=== PATIENT | female | born 1990 | race Two or more races ===

== ENCOUNTER 2022-07-24 15:52 | Emergency (ER) | payer OTHER ==
[~2022-07-24] VITALS: Ht 157.5 cm; Wt 72.7 kg
[2022-07-24 18:21] VITALS: BP 99/65
== END 2022-07-24 18:23 | disposition home or self-care (01) ==
LOC: EEVIPCON 15:52 → EDBD 15:52 → ER 15:52
DX: M79.605 Pain in left leg (principal); F17.210 Nicotine dependence, cigarettes, uncomplicated
CPT/HCPCS: 93971